=== PATIENT | female | born 1955 | race Hispanic/Latino ===

== ENCOUNTER 2019-05-14 06:05 | Observation (INO) | payer OTHER ==
[2019-05-10 11:37] LABS: BASOPHILS % 0.4 % (0.0-1.0); EOSINOPHILS # (AUTO) 0.1 (0.0-0.4); EOSINOPHILS % 1.2 % (0.0-6.0); HEMATOCRIT 37.7 % (34.2-44.1); HEMOGLOBIN 12.2 g/dL (12.0-16.0); LYMPHOCYTES # (AUTO) 2.7 (1.0-3.2); MEAN CORPUSCULAR HEMOGLOBIN 29.2 pg (28-32); MEAN CORPUSCULAR HGB CONC 32.4 g/dL (31-35); MEAN CORPUSCULAR VOLUME 90.2 fL (81-99); MONOCYTES # (AUTO) 0.6 (0.2-0.8); NEUTROPHILS # (AUTO) 3.8 (2.1-6.9); NEUTROPHILS % 53.1 % (38.7-80.0); PLATELET COUNT 272 x10e3/uL (140-360); RED BLOOD COUNT 4.18 x10e6/uL (3.6-5.1); RED CELL DISTRIBUTION WIDTH 13.5 % (11.7-14.4)
--- NOTE | 2019-05-10 11:48 | Diagnostic Imaging Report ---
EXAMINATION: CHEST 2 VIEWS INDICATION: Pre-op. COMPARISON: None FINDINGS: TUBES and LINES: None. LUNGS: Low lung volumes which decreases sensitivity and specificity for pathology. Mild bibasilar opacities, likely atelectasis. There is no evidence of pneumonia or pulmonary edema. Calcified rounded structure in the anterior hemithorax on the lateral view may represent a calcified granuloma or lymph node. PLEURA: No pleural effusion or pneumothorax. HEART AND MEDIASTINUM: The cardiomediastinal silhouette is unremarkable. There are atherosclerotic calcifications within the aorta. BONES AND SOFT TISSUES: No acute osseous abnormality. UPPER ABDOMEN: No free air under the diaphragm. IMPRESSION: No acute radiographic abnormality. Signed by: Dr. Delta Lawson MD on 05/10/2019 11:44 AM
[2019-05-10 11:49] LABS: ALANINE AMINOTRANSFERASE 23 IU/L (0-55); ALBUMIN 3.6 g/dL (3.5-5.0); ALKALINE PHOSPHATASE 68 IU/L (40-150); BLOOD UREA NITROGEN 18 mg/dL (7-26); BUN/CREATININE RATIO 26 (6-25); CALCIUM 10.1 mg/dL (8.4-10.2); CARBON DIOXIDE 29 mmol/L (22-29); CHLORIDE 103 mmol/L (98-107); CREATININE, SERUM 0.69 mg/dL (0.57-1.11); EST GLOMERULAR FILTRATION RATE > 60 ML/MIN (60-); GLUCOSE 93 mg/dL (74-118); SODIUM 142 mmol/L (136-145)
[~2019-05-14] VITALS: Ht 144.8 cm; Wt 84.4 kg
[~2019-05-14 06:05] MED LIST: LEVOTHYROXINE50 MCG PO; LOVASTATIN10 MG PO; TRESIBA FLEXTOUCH SQ; VASOTEC5 MG PO
--- OUTSIDE RECORDS SUMMARY | 2019-05-14 06:35 | XMS REPORT ---
Author Author [facility] Address Unknown Phone Unavailable Care Team Providers Care Telephone Assembler Name Role Phone LO BLACKOWOD Unavailable Unavailable Problems This patient has no known problems. Allergies, Adverse Reactions, Alerts This patient has no known allergies or adverse reactions. Medications This patient has no known medications. Results Test Description Test Time Test Comments Text Results Atomic Results Result Comments CHEST 2 VIEWS 2019-05-10 11:40:00 [place] [address] Patient Name: RENE DOVE MR #: [id number] : 1955 Age/Sex: 63/F Req #: [id number] [facility] Physician: Ordered by: LO BLACKWOOD MD Report #: [id number] Location: OR Room/Bed: Procedure: [id number] DX/CHEST 2 VIEWS Exam Date: 05/10/19 Exam Time: 1115 REPORT STATUS: Signed EXAMINATION: CHEST 2 VIEWS INDICATION: Pre-op. COMPARISON: None FINDINGS: TUBES and LINES: None. LUNGS: Low lung volumes which decreases sensitivity and specificity for pathology. Mild bibasilar opacities, likely atelectasis. There is no evidence of pneumonia or pulmonary edema. Calcified rounded structure in the anterior hemithorax on the lateral view may represent a calcified granuloma or lymph node. PLEURA: No pleural effusion or pneumothorax. HEART AND MEDIASTINUM: The cardiomediastinal silhouette is unremarkable. There are atherosclerotic calcifications within the aorta. BONES AND SOFT TISSUES: No acute osseous abnormality. UPPER ABDOMEN: No free air under the diaphragm. IMPRESSION: No acute radiographic abnormality. Signed by: Dr. Nikita Garza MD on 05/10/2019 11:44 AM Dictated By: NIKITA GARZA MD [id number] Transcribed By: SHANEKA on 05/10/19 1144 COPY TO: LO BLACKWOOD MD
[2019-05-14] MEDS ORDERED: CLINDAMYCIN PHOS 900MG/ 50ML 50 ML IV ONE (07:20)
[2019-05-14] MEDS ORDERED: DEXTROSE 5% 250ML 250 ML IV ONE (07:37)
[2019-05-14] MEDS ORDERED: PIOGLITAZONE HC45 MG PO (08:03)
[2019-05-14] MEDS ORDERED: BUPIVACAINE 0.5%/EPI 30 ML SDV INJ ONE (08:38)
[2019-05-14] MEDS ORDERED: ESTROGENS CONJUGATED VAGINAL CR 45 GM TUBE PV ONE (08:39)
[2019-05-14] MEDS: LACTATED RINGER'S 1,000 ML IV SCH ×2 (08:59→16:59)
[2019-05-14] MEDS ORDERED: DIPHENHYDRAMINE HCL 25 MG CAP PO PRN (09:00)
[2019-05-14] MEDS ORDERED: DOCUSATE SODIUM 100 MG CAP PO PRN (09:00)
[2019-05-14] MEDS ORDERED: DEXTROSE 50% SYRINGE 50 ML IV PRN (09:15)
[2019-05-14] MEDS ORDERED: FENTANYL CITRATE/PF 100MCG/2 ML INJ ONE ×2 (10:55→17:51)
[2019-05-14] MEDS: INSULIN REGULAR, HUMAN 100 UNIT/1 ML 3ML VIAL SQ SCH ×3 (11:30→21:00)
[2019-05-14 12:20] VITALS: BP 130/71
[2019-05-14 12:33] VITALS: BP 130/71
--- NOTE | 2019-05-14 12:39 | Operative Report ---
DATE OF PROCEDURE: SURGEON: Libra Fajardo MD PREOPERATIVE DIAGNOSIS: Pelvic organ prolapse. POSTOPERATIVE DIAGNOSIS: Pelvic organ prolapse. PROCEDURE: Total vaginal hysterectomy, anterior repair, and sacrospinous colpopexy. MARINA PORTER: Dr. Hernandez. COMPLICATIONS: None. ESTIMATED BLOOD LOSS: 30 mL. PROCEDURE IN DETAIL: The patient was taken to the OR. General anesthesia was induced. She was prepped and draped in a normal sterile fashion, placed in dorsal lithotomy position. After examination under anesthesia, a weighted speculum was placed inside the vagina. Cervix was grasped with single tooth tenaculum. Some vaginal tissue was injected with Marcaine with epinephrine 0.25% around the cervix. A circumferential vaginal skin incision was made at the level of the bladder line. The bladder was dissected off the cervix using curved De La Cruz scissors and gentle sweeps of latex wrapped on the index finger. The pouch of Crispin was opened with Metzenbaum scissors and a weighted speculum was advanced into the pouch of Crispin using curved Zeppelin clamp. The uterosacral ligaments were clamped, cut, and pedicle secured with transfixion suture of Vicryl 0. Using the LigaSure, the blood vessels on each side of the uterine vessels were clamped, cut, and pedicle secured. More bites were made on each side of the uterus. The uterus was freed and brought outside the wound with a finger around the anterior pouch, the Zeppelin clamp applied on each side of the uterus, had cornu on each side and the uterus was freed with curved De La Cruz scissors and sent to pathology. on each side of the uterus were secured with Vicryl 0 suture. Following this, hemostasis was found to be adequate. The vagina was dissected off the anterior of the bladder using Metzenbaum scissors and then anterior wall of the vagina was opened with Metzenbaum scissors. Two flaps were dissected off the underlying bladder using both sharp and blunt dissection with gentle sweeps of latex wrapped on the index finger, bladder dissection of the vagina. Following this, with the index finger, the pelvic fascia was pierced and the sacrospinous ligament was palpated and the Capio needle agee was used to throw a Vicryl suture of the sacrospinous ligament on the side of the pelvis. The other end was sutured to the vaginal vault. Following this, the pubocervical ligaments were approximated using Vicryl 0 sutures and excess vaginal skin was trimmed off using curved De La Cruz scissors. The vagina was closed with interlocking stitches of Vicryl zero. Hemostasis was found to be adequate and the sacrospinous sutures were tied and the vaginal vault was lifted. Tanner catheter was placed inside the bladder for drainage and the vagina was packed. The patient tolerated the procedure well. Lap, instrument, and needle count was correct x2 at the end of procedure. Libra Fajardo MD DD/TYLER /[id number]
[2019-05-14 12:40] VITALS: BP 130/71
--- NOTE | 2019-05-14 14:50 | NUR ---
Visit made by the Spiritual Care Department Pastoral Visitor, Kelly Gudino. PV provided pastoral presence, prayer, hospitality, and supportive listening. Pastoral Visitor informed pt/family of the scope of [employer] and availability. LOI MORFIN [employer] Spiritual Care Department O: [phone] Pager: [phone] ([phone] number calling from)
[2019-05-14] MEDS ORDERED: SEVOFLURANE INHAL SOLN 250 ML PEN BTL ONE (15:05)
[2019-05-14] MEDS ORDERED: PROPOFOL IV EMULSION 10 MG/ML 20 ML VIAL ONE (15:05)
[2019-05-14] MEDS ORDERED: LIDOCAINE HCL 2% LOCAL INJ 5 ML SDV VIAL INJ ONE (15:05)
[2019-05-14] MEDS ORDERED: ONDANSETRON HCL INJ 2MG/ML 2ML 2 MG/ML VIAL ONE (15:05)
[2019-05-14] MEDS ORDERED: ROCURONIUM BROMIDE 10 MG/ML 5ML VIAL ONE (15:05)
[2019-05-14] MEDS ORDERED: DEXAMETHASONE SOD PHOS INJ 4 MG/ML VIAL ONE (15:05)
[2019-05-14] MEDS: ACETAMINOPHEN 325 MG TAB PO PRN (16:10)
[2019-05-14] MEDS: KETOROLAC TROMETHAMINE 30 MG/ML VIAL IM PRN (16:10)
[2019-05-14 16:37] VITALS: BP 147/70
[2019-05-14] MEDS ORDERED: MIDAZOLAM HCL 2 MG/2 ML VIAL ONE (17:51)
--- NOTE | 2019-05-14 18:45 | NUR ---
Received bedside shift report from day shift RN. The patient is laying on the bed with not in distress. Bed height low, wheels lock, call light within reach and side rails up x2.
[2019-05-14 19:30] VITALS: BP 147/70
[2019-05-14 20:00] VITALS: BP 159/70
[2019-05-14] MEDS ORDERED: ZOLPIDEM TARTRATE 5 MG TAB PO PRN (21:00)
[2019-05-14] MEDS: LOVASTATIN PO SCH (22:11)
[2019-05-15] VITALS (7 sets, daily range): BP systolic 114–121; BP diastolic 54–68
[2019-05-15] MEDS: LACTATED RINGER'S 1,000 ML IV SCH ×3 (00:59→16:59)
--- NOTE | 2019-05-15 05:46 | NUR ---
Tanner catheter D/C at 0540. RN educated patient she must moved within 4 hours. Patient verbalized understand and stated she need to go to the bathroom to void.
[2019-05-15] MEDS ORDERED: LEVOTHYROXINE 150 MCG PO SCH (06:00)
[2019-05-15] MEDS: KETOROLAC TROMETHAMINE 30 MG/ML VIAL IM PRN (06:06)
[2019-05-15 06:15] LABS: BASOPHILS % 0.1 % (0.0-1.0); HEMATOCRIT 34.3 % (34.2-44.1); HEMOGLOBIN 11.1 g/dL (12.0-16.0); LYMPHOCYTES # (AUTO) 2.5 (1.0-3.2); LYMPHOCYTES % 24.2 % (18.0-39.1); MEAN CORPUSCULAR HEMOGLOBIN 29.4 pg (28-32); MEAN CORPUSCULAR HGB CONC 32.4 g/dL (31-35); MEAN CORPUSCULAR VOLUME 90.7 fL (81-99); MONOCYTES # (AUTO) 0.8 (0.2-0.8); MONOCYTES % 7.5 % (4.4-11.3); NEUTROPHILS % 67.8 % (38.7-80.0); PLATELET COUNT 272 x10e3/uL (140-360); RED BLOOD COUNT 3.78 x10e6/uL (3.6-5.1); RED CELL DISTRIBUTION WIDTH 13.7 % (11.7-14.4)
[2019-05-15 06:38] LABS: ALANINE AMINOTRANSFERASE 33 IU/L (0-55); ALBUMIN 3.1 g/dL (3.5-5.0); ALBUMIN/GLOBULIN RATIO 0.9 (0.8-2.0); ALKALINE PHOSPHATASE 62 IU/L (40-150); ANION GAP 12.7 mmol/L (8-16); BLOOD UREA NITROGEN 19 mg/dL (7-26); BUN/CREATININE RATIO 28 (6-25); CALCIUM 8.9 mg/dL (8.4-10.2); CARBON DIOXIDE 28 mmol/L (22-29); CHLORIDE 104 mmol/L (98-107); CREATININE, SERUM 0.69 mg/dL (0.57-1.11); EST GLOMERULAR FILTRATION RATE > 60 ML/MIN (60-); GLUCOSE 135 mg/dL (74-118); POTASSIUM 4.7 mmol/L (3.5-5.1); SODIUM 140 mmol/L (136-145)
[2019-05-15] MEDS: INSULIN REGULAR, HUMAN 100 UNIT/1 ML 3ML VIAL SQ SCH ×4 (07:30→20:21)
--- NOTE | 2019-05-15 07:30 | NUR ---
PT RESTING IN BED [id number]. FAMILY IS AT BEDSIDE PT STATES VOIDING INTO TOILET AFTER TEJEDA REMOVAL. RIGHT HAND 20 G SL PATENT AND DRY AND THIS TIME PACKING REMAINS ON VAGINA OPENING AT THIS TIME. WILL DC AFTER PT EATS BREAKFAST SOME LEAKAGE NOTED ON BED. WILL CHANGE LINEN WHEN APPROPRIATE WILL CONTINUE TO MONITOR PT AT THIS TIME , SIDE RAILSX2, BED WHEELS LOCKED CALL LIGHT IS WITHIN EASY REACH, INSTRUCTED TO CALL FOR ASSISTANCE IF NEEDED
[2019-05-15] MEDS ORDERED: ENALAPRIL MALEATE 5 MG TAB PO SCH (09:00)
[2019-05-15] MEDS ORDERED: ENALAPRIL 20 MG PO SCH (09:00)
[2019-05-15] MEDS ORDERED: LEVOTHYROXINE SODIUM 50 MCG TAB PO SCH (09:00)
[2019-05-15] MEDS ORDERED: ACTOS 45 MG PO SCH (09:00)
[2019-05-15] MEDS ORDERED: PIOGLITAZONE HCL 45 MG TAB PO SCH (09:00)
--- NOTE | 2019-05-15 09:22 | NUR ---
packing removed at this time .pt tolerated well. will continue to monitor
[2019-05-15] MEDS ORDERED: TYLENOL # 31 EA PO (15:28)
[2019-05-15] MEDS: ACETAMINOPHEN 325 MG TAB PO PRN (15:44)
--- NOTE | 2019-05-15 18:29 | NUR ---
called md connor for dc orders . states he will comes see her at 1999 no orders received at this time
[2019-05-15] MEDS: LOVASTATIN PO SCH (20:21)
--- NOTE | 2019-05-15 21:30 | NUR ---
PT DISCHARGED HOME IN STABLE CONDITION WITH ALL HER BELONGINGS.FAMILY PRESENT AT THE TIME OF DISCHARGE.
== END 2019-05-15 22:39 | disposition home or self-care (01) ==
LOC: OR 06:05 → PACU V 09:03 → MED/SURG 12:06
PROVIDERS: ADMIT Obstetrics & Gynecology; ATTEND Obstetrics & Gynecology
DX: N81.89 Other female genital prolapse (principal); N80.0 Endometriosis of uterus; Z01.810 Encounter for preprocedural cardiovascular examination; Z01.812 Encounter for preprocedural laboratory examination; Z01.811 Encounter for preprocedural respiratory examination; E11.9 Type 2 diabetes mellitus without complications; I10 Essential (primary) hypertension; Z79.4 Long term (current) use of insulin; Z88.0 Allergy status to penicillin
CPT/HCPCS: 36415 ×3; 57240; 58260; 71046; 80053 ×2; 82948 ×2; 85025 ×2; 88307; 93005; G0378 ×2; J1100; J1817; J1885 ×2; J2001; J2250; J2405; J2704; J3010; J7070